=== PATIENT | male | born 1965 | race African-American/Black ===

== ENCOUNTER 2019-04-10 14:41 | Emergency (ER) | payer MEDICARE, OTHER ==
[~2019-04-10] VITALS: Ht 167.6 cm; Wt 122.5 kg
[~2019-04-10 14:41] MED LIST: DEPAKOTE500 MG PO; SEROQUEL XR300 MG ORAL; TRAMADOL HCL50 MG ORAL
[2019-04-10] MEDS ORDERED: ABILIFY10 MG ORAL (15:10)
[2019-04-10 16:13] VITALS: BP 124/70
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
--- NOTE | 2019-04-10 16:25 | NUR ---
ED Nurse Note: pt left for xray
[2019-04-10] MEDS ORDERED: Ketorolac 30mg Inj IM ONE (16:30)
--- NOTE | 2019-04-10 16:55 | Diagnostic Imaging Report ---
Indication: left ankle pain Comparison: None Findings: 3 views of the left ankle obtained. 11 there is soft tissue swelling involving the foot and ankle. No acute fracture is appreciated. Bones appear osteopenic. There is no malalignment. IMPRESSION: No acute fracture.
--- NOTE | 2019-04-10 16:56 | Diagnostic Imaging Report ---
INDICATION: Knee Pain COMPARISON: None 3 views of the left knee were obtained. FINDINGS: No fracture or malalignment identified. Mild osteophyte formation appreciated in all 3 compartments of the knee. No definite joint effusion definitely demonstrated. IMPRESSION: Mild osteoarthritis
--- NOTE | 2019-04-10 16:57 | Diagnostic Imaging Report ---
Indication: Right wrist pain COMPARISON: None Findings: 3 views of the right wrist were obtained. There is evidence of a fracture involving the triquetrum. This is best seen on the oblique and lateral views. Some fragmentation noted on the lateral view on the dorsal part of the wrist. There is no malalignment. Soft tissue swelling is present. IMPRESSION: Acute fracture of the triquetrum
--- NOTE | 2019-04-10 16:58 | Diagnostic Imaging Report ---
Indications: hip pain Findings: 2 views of both hips were obtained. Neutral and lateral views of both hips obtained. No fracture is identified. Soft tissues are unremarkable. Alignment is normal. IMPRESSION: No acute fracture identified
[2019-04-10 17:05] VITALS: BP 133/72
[2019-04-10] MEDS ORDERED: DEPAKOTE500 MG PO (17:29)
[2019-04-10] MEDS ORDERED: LATUDA40 MG PO (17:29)
[2019-04-10] MEDS ORDERED: NAPROXEN500 M2 ORAL (17:29)
[2019-04-10 17:32] VITALS: BP 136/71
--- NOTE | 2019-04-10 17:33 | NUR ---
ER DISCHARGE NOTE: Patient is cleared to be discharged per ERMD, pt is aox4, on room air, with stable vital signs. pt was given dc and prescription instructions, pt was able to verbalize understanding, pt id bandremoved. right wrist placed in volar splint. pt is able to ambulate with steady gait. pt took all belongings. pt wlth mother
== END 2019-04-10 17:32 | disposition home or self-care (01) ==
LOC: EMR 15:30
DX: S62.111A Displaced fracture of triquetrum [cuneiform] bone, right wrist, initial encounter for closed fracture (principal); M17.12 Unilateral primary osteoarthritis, left knee; M25.572 Pain in left ankle and joints of left foot; M25.552 Pain in left hip; F31.9 Bipolar disorder, unspecified; W18.30XA Fall on same level, unspecified, initial encounter; Y92.85 Railroad track as the place of occurrence of the external cause
CPT/HCPCS: 29125; 73110; 73521; 73562; 73610; 96372; 99284; J1885